=== PATIENT | female | born 1970 | race Caucasian/White ===

== ENCOUNTER → 2018-04-07 | Outpatient (CLI) | payer OTHER ==
[~2018-04-07] MED LIST: FISH500C PO; METH-703 PO; PRENCAP6 PO; TRAM50 PO
[2018-04-07 11:03] LABS: HEMATOCRIT 39.1 % (35.0-46.0); HEMOGLOBIN 12.9 GM/DL (11.6-15.3); MEAN CELL VOLUME 87.3 FL (80.0-100.0); MEAN CORPUSCULAR HEMOGLOBIN 28.8 PG (27.0-34.0); PLATELET COUNT 219 TH/MM3 (150-450); RED BLOOD COUNT 4.48 MIL/MM3 (4.00-5.30); RED CELL DISTRIBUTION WIDTH 14.7 % (11.6-17.2); WHITE BLOOD COUNT 4.8 TH/MM3 (4.0-11.0)
[2018-04-07 11:10] LABS: BILIRUBIN, URINE NEG (NEG); BLOOD, URINE SMALL (NEG); GLUCOSE,URINE NEG (NEG); KETONE, URINE TRACE mg/dL (NEG); MUCUS URINE MOD /lpf (OCC); NITRITE,URINE NEG (NEG); SQUAMOUS EPITHELIAL CELL URINE 1 /hpf (0-5); URINE COLOR Amber (YELLW/STRAW); URINE LEUKOCYTE ESTERASE NEG (NEG)
[2018-04-07 11:26] LABS: AST (GOT) 15 U/L (15-37); BICARBONATE 24.4 MEQ/L (21.0-32.0); BLOOD UREA NITROGEN 12 MG/DL (7-18); CALCIUM 8.9 MG/DL (8.5-10.1); CHLORIDE 106 MEQ/L (98-107); CREATININE 0.78 MG/DL (0.50-1.00); GLOMERULAR FILTRATION RATE 80 ML/MIN (>89); GLUCOSE,FASTING 74 MG/DL (74-99); SODIUM (NA) 141 MEQ/L (136-145)
[2018-04-07 11:27] LABS: ALT (GPT) 17 U/L (10-53)
[2018-04-07 11:30] LABS: ALKALINE PHOSPHATASE 44 U/L (45-117); TOTAL BILIRUBIN ADULT 0.5 MG/DL (0.2-1.0); TOTAL PROTEIN 7.4 GM/DL (6.4-8.2)
== END ==
LOC: CPRE 09:23
PROVIDERS: ATTEND Obstetrics & Gynecology
DX: Z01.812 Encounter for preprocedural laboratory examination (principal); D25.2 Subserosal leiomyoma of uterus; N94.6 Dysmenorrhea, unspecified; R10.2 Pelvic and perineal pain; N93.9 Abnormal uterine and vaginal bleeding, unspecified; N94.10 Unspecified dyspareunia
CPT/HCPCS: 36415; 80053; 81001; 84703; 85027

== ENCOUNTER 2018-04-11 06:07 | Observation (INO) ==
[2018-04-11] MEDS ORDERED: Estrogens Congugated Vag Cream w/app 30 GM Tube VAGINAL ONE (06:46)
[2018-04-11] MEDS ORDERED: Bupivacaine/Epinephrine Inj 0.25% 50 ML Vial ONE (06:46)
[2018-04-11] MEDS ORDERED: Metoprolol Tartrate 25 MG Tablet PO SCH (07:30)
[2018-04-11] MEDS ORDERED: Chlorhexidine Gluconate 2% 1 Pack (2 Cloths) TOPICAL SCH (07:30)
[2018-04-11] MEDS ORDERED: Sodium Chlor 0.9% Inj 500 ML IV.SIG SCH (08:00)
--- NOTE | 2018-04-11 10:39 | P.OP ---
- Preoperative Diagnosis (1) Menorrhagia (2) Dysmenorrhea (3) Fibroid uterus - Postoperative Diagnosis (1) Dysmenorrhea (2) Fibroid uterus (3) Menorrhagia Date of procedure: 04/11/18 Procedure: Exam under anesthesia, laparoscopic vaginal hysterectomy, left salpingectomy Anesthesia: MANUEL Surgeon: Bethanie Louis MD Cobol Application Developer: Radha Busby Estimated blood loss (mL): 100 IV fluids (mL): 1,000 Urine output (mL): 300 Pathology: other (uterus, cervix, left tube) Operation and Findings: DVT PROPHYLAXIS: Sequential compression devices on extremities. PREOPERATIVE ANTIBIOTICS: Ancef 1 g IV preincision INTRAOPERATIVE FINDINGS: Uterus was anteverted, approximately 9 weeks in size with posterior 3 cm fibroid. Small mucoid blebs on left fallopian tube, likely endometriosis. Retrograde menses noted. Multiparous cervix. Evidence of the prior right salpingo-oopherectomy and absence of right broad ligament and round ligament. Left ovary appeared within normal limits. Appendix surgically absent. Liver edge appeared normal. Gallbladder not visualized. COMPLICATIONS: None. COUNTS: Correct x 3. PROCEDURE IN DETAIL: After review of informed consent, the patient was taken to the operating room, where general anesthesia was performed without complications. She was placed in the dorsal lithotomy position in Jerome stirrups. The abdomen and perineum were prepped and draped in normal sterile fashion. An exam under anesthesia was performed. A bivalve speculum was placed in the vagina. A single-tooth tenaculum was placed on the anterior lip of the cervix. The cervix was dilated to accommodate the Hulka uterine manipulator. The single-tooth tenaculum was removed. The Monteiro was then placed in the sterile fashion, placed to dependent drainage. Gloves were changed. Attention was placed to the abdomen. A 5 mm skin incision was made inferior to the umbilicus after infusion of marcaine 0.25% with epi. A direct visual entry was performed. After abdominal entry was confirmed, the abdomen was insufflated. After injecting with Marcaine 0.25% with epinephrine, Two lower quadrant 5 mm incisions were made with a scalpel, and two accessory trochars were placed under direct visualization. The abdomen was then inspected. Intraoperative findings, of note, there was evidence of prior RSO but the right round and broad ligament were also missing. The Harmonic was used during the case. The harmonic was used to hydrodesicate and transect the mesosalpinx of the left tube from the fimbriated end to the corneal region. This specimen was removed through the trocar. The round ligament was transected with the Harmonic. The anterior leaf of the broad ligament was transected in a medial-caudal fashion to develop the bladder flap bilaterally. Serial bites were taken down to the level of the uterine artery. On the right side, uterine artery was hydrodesicated with the Harmonic; min bleeding noted, reinforced with Kleppinger. Min oozing from ovarian edge reinforced with Kleppinger. All instruments were removed from the abdomen. The abdomen was desufflated. Attention was turned to the pelvis. A weighted speculum was placed in the vagina and a Dunlow anteriorly. The cervix was grasped with a single-tooth tenaculum. The Hulka was removed. Marcaine 0.25% with epinephrine was injected in a circumferential fashion around the anterior portion of the cervix. The cervix was circumscribed with the Bovie. The anterior cul-de-sac was entered with Metzenbaum scissors. A abram was placed in the anterior cul -de-sac to elevate and protect the bladder. The posterior cul-de-sac was entered with Talley scissors. The peritoneum was tagged to the posterior cul-de- sac. The uterosacral ligaments bilaterally were clamped with a Rula clamp. These were cut, suture ligated with a fixation stitch of 0 vicryl and tagged. Serial bites were taken to the cardinal ligaments to deliver the specimen. There was good hemostasis noted. The posterior peritoneum and the vaginal mucosa were reapproxiamted in a running locked fashion with 0 Vicryl. The cuff was closed in a vertical fashion with 0 Vicryl in a running fashion. The vagina was irrigated and noted to be hemostatic. Gloves were changed again and attention was turned to the abdomen. The abdomen was insufflated and inspection was performed again. Irrigation and suction performed. Hansa was placed on all pedicles. All instruments were removed. The abdomen was desufflated. The trocars were removed after five deep Valsalva breaths were given. The skin was closed with 4-0 Monocryl. Steri-Strips were applied. The patient tolerated the procedure well. Anesthesia was reversed without complication. She was taken to PACU in stable condition.
[2018-04-11] MEDS ORDERED: *Meperidine Inj 25 MG/ML Vial PERIprocedural Use ONLY ONE (10:42)
[2018-04-11] MEDS ORDERED: fentaNYL Citrate Inj 100 MCG/2 ML Ampul ONE (10:44)
[2018-04-11] MEDS ORDERED: *morphine SULFATE 4 MG/ML PERIprocedure ONLY ONE (11:17)
[2018-04-11] MEDS ORDERED: Ketorolac Inj 30 MG/ML (IVP) Vial IV.PUSH ONE (12:00)
[2018-04-11] MEDS ORDERED: Neostigmine Inj 5 MG/5 ML Syringe IV.PUSH ONE (12:00)
[2018-04-11] MEDS ORDERED: Lidocaine PF 1% Inj 5 ML Syringe INFILTRATN ONE (12:00)
[2018-04-11] MEDS ORDERED: Glycopyrrolate Inj 1 MG/5 ML Syringe IV.PUSH ONE (12:00)
[2018-04-11] MEDS: Ketorolac Inj 30 MG/ML (IVP) Vial IV.PUSH SCH ×2 (16:56→22:50)
[2018-04-12] MEDS: Ketorolac Inj 30 MG/ML (IVP) Vial IV.PUSH SCH (04:57)
[2018-04-12 06:04] LABS: Baso % (Auto) 0.2 % (0.0-2.0); Eos # (Auto) 0.1 th/mm3 (0.0-0.4); Eos % (Auto) 0.5 % (0.0-4.0); Hematocrit 33.4 % (35.0-46.0); Hemoglobin 11.4 gm/dL (11.6-15.3); Lymph # (Auto) 1.9 th/mm3 (1.0-4.8); Lymph % (Auto) 19.9 % (9.0-44.0); Mean Corpuscular HGB Conc 34.1 % (32.0-36.0); Mean Corpuscular Hemoglobin 29.8 pg (27.0-34.0); Mean Corpuscular Volume 87.4 fL (80.0-100.0); Mono # (Auto) 0.7 th/mm3 (0.0-0.9); Mono % (Auto) 6.9 % (0.0-8.0); Neut # (Auto) 6.8 th/mm3 (1.8-7.7); Neut % (Auto) 72.5 % (16.0-70.0); Platelet Count 202 th/mm3 (150-450); Red Blood Count 3.83 mil/mm3 (4.00-5.30); White Blood Count 9.4 th/mm3 (4.0-11.0)
[2018-04-12] MEDS ORDERED: Docusate Sodium 100 MG Capsule PO SCH (09:00)
--- NOTE | 2018-04-12 09:02 | P.PNOB ---
Subjective Post op day: 1 Interval history: feeling very good. Happy she had procedure done. Pain well controlled, passing flatus, min bleeding, voiding w/o difficulty Objective Vital Signs/I&O: Vital Signs 04/11/18 10:38 04/11/18 10:45 04/11/18 11:00 Temperature 98.8 F Pulse Rate 77 66 64 Respiratory Rate 18 12 17 Blood Pressure 115/59 L 113/62 103/58 L Pulse Oximetry 99 100 100 04/11/18 11:15 04/11/18 11:30 04/11/18 11:45 Temperature Pulse Rate 73 66 68 Respiratory Rate 21 15 24 Blood Pressure 99/57 L 98/55 L 99/55 L Pulse Oximetry 100 99 04/11/18 12:00 04/11/18 12:25 04/11/18 16:55 Temperature 97.9 F 98.3 F 98.9 F Pulse Rate 70 70 Respiratory Rate 20 16 16 Blood Pressure 104/57 L 95/56 L 90/51 L Pulse Oximetry 100 100 04/11/18 19:47 04/12/18 00:00 04/12/18 04:00 Temperature 98.6 F 98.6 F 98.1 F Pulse Rate 72 76 64 Respiratory Rate 16 17 18 Blood Pressure 95/64 L 102/63 98/69 L Pulse Oximetry 04/12/18 08:00 Temperature 98.6 F Pulse Rate 62 Respiratory Rate Blood Pressure 109/61 Pulse Oximetry 100 Intake & Output 04/11/18 04/12/18 04/12/18 18:59 06:59 18:59 Intake Total 1195 / 1195 200 / 200 Output Total 1200 / 1200 1050 / 1050 Balance -5 / -5 200 / 200 -1050 / -1050 Weight 70.1 kg Intake: IV 100 / 100 200 / 200 Ofirmev Inj 1,000 mg In 100 ml 200 / 200 @ 400 mls/hr IV.SIG Q6H [facility] Rx# :[id number] Ancef Inj 1,000 MG In NS Inj 100 / 100 100 ML @ 200 mls/hr IV.SIG [employer] [facility] Rx#:[id number] Oral 20 / 20 Anesthesia Amount 1000 / 1000 Other 75 / 75 Output: Urine 300 / 300 1050 / 1050 Estimated Blood Loss 100 / 100 Urine Amount (Catheter) 800 / 800 Indwelling Urethral Catheter 800 / 800 Other: Weight On Admission 70.1 kg Result Diagrams: 04/12/18 05:04 Objective Remarks: GENERAL: Well-nourished, well-developed patient. CARDIOVASCULAR: Regular rate and rhythm without murmurs, gallops, or rubs. RESPIRATORY: Breath sounds equal bilaterally. No accessory muscle use. ABDOMEN/GI: Abdomen soft, non-tender, bowel sounds present. Incision: Clean, dry and intact. GENITOURINARY: Light to moderate bleeding. EXTREMITIES: No cyanosis or edema, non-tender, without signs of DVT. Medications and IVs: Active Medications Chlorhexidine Gluconate (Chlorhexidine 2% Cloth) 3 pack TOPICAL [employer] [facility] Stop: 04/14/18 07:17 Last Admin: 04/11/18 07:00 Dose: 3 pack Cyclobenzaprine HCl (Flexeril) 10 mg PO Q8H PRN PRN Reason: BACK PAIN Last Admin: 04/11/18 21:01 Dose: 10 mg Diphenhydramine HCl (Benadryl) 25 mg PO Q6H PRN PRN Reason: ITCHING Docusate Sodium (Colace) 100 mg PO BID [facility] Lactated Ringer's (Lr 1000 Ml Inj) 1,000 mls @ 30 mls/hr IV.SIG .Q24H [facility] Stop: 04/14/18 07:59 Last Admin: 04/11/18 06:30 Dose: 30 mls/hr Sodium Chloride (Ns Inj) 500 mls @ 30 mls/hr IV.SIG .Q10H [facility] Stop: 04/14/18 07:17 Cefazolin Sodium 1,000 mg/ (Sodium Chloride) 100 mls @ 200 mls/hr IV.SIG [employer] [facility] Stop: 04/14/18 07:24 Last Infusion: 04/11/18 08:20 Dose: Infused Lactated Ringer's (Lr 1000 Ml Inj) 1,000 mls @ 75 mls/hr IV.CONT .[id number] [facility] Last Admin: 04/11/18 11:01 Dose: 75 mls/hr Acetaminophen (Ofirmev Inj) 1,000 mg in 100 mls @ 400 mls/hr IV.SIG Q6H [facility] Last Infusion: 04/12/18 05:15 Dose: Infused Ketorolac Tromethamine (Toradol Inj) 30 mg IV.PUSH Q6H [facility] Stop: 04/12/18 10:29 Last Admin: 04/12/18 04:57 Dose: 30 mg Metoprolol Tartrate (Lopressor) 25 mg PO [employer] [facility] Stop: 04/14/18 07:17 Miscellaneous Information (Misc Do Not Adm Any Anticoagulants) 1 each OTHER UNSCH [facility] Stop: 04/12/18 10:39 Ondansetron HCl (Zofran Odt) 4 mg PO Q6H PRN PRN Reason: NAUSEA OR VOMITING Povidone Iodine (Betadine 5% Antisepsis Kit) 1 applicatio EACH NARE [employer] [facility] Stop: 04/14/18 07:17 Last Admin: 04/11/18 07:00 Dose: 1 applicatio Promethazine HCl (Phenergan) 25 mg PO Q6H PRN PRN Reason: NAUSEA OR VOMITING Sodium Chloride (Ns Flush) 2 ml IV.FLUSH PRN PRN PRN Reason: FLUSH AFTER USING IV ACCESS Sodium Chloride (Ns Flush) 2 ml IV.FLUSH BID [facility] Assessment and Plan - Diagnosis (1) S/P laparoscopic assisted vaginal hysterectomy (LAVH) Code(s): Z90.710 - Acquired absence of both cervix and uterus Status: Acute - Plan POD 1 doing well, d/c home today. fu 2 wk in office, no heavy lifting, pelvic rest
[2018-04-12] MEDS ORDERED: Ibuprofen 600 MG Tablet PO PRN (10:27)
== END 2018-04-12 10:39 | disposition home or self-care (01) ==
LOC: HOR 06:07 → H1EA 06:07 → HSDI 06:07 → H1EA 12:24
PROVIDERS: ADMIT Obstetrics & Gynecology; ATTEND Obstetrics & Gynecology